=== PATIENT | female | born 1990 ===

== ENCOUNTER 2018-06-30 15:23 | Observation (INO) | payer MEDICAID ==
--- NOTE | 2018-06-30 16:12 | ED PDOC ---
HPI: Chest Pain Time Seen by Provider: 06/30/18 15:35 Chief Complaint (Nursing): Chest Pain Chief Complaint (Provider): Chest Pain History Per: Patient History/Exam Limitations: no limitations Onset/Duration Of Symptoms: Days (x5) Current Symptoms Are (Timing): Still Present Additional Complaint(s): 28 year old female with a past medical history of gastric sleeve surgery who is presenting to the ED for evaluation of left sided chest pain radiating to the back associated with shortness of breath onset this morning. Patient is 5 days s/p gastric sleeve placement and denies any leg pain or swelling. She also denies any fevers, cough, or chills. Patient offers no other medical complaints at this time. PMD: none provided Past Medical History Reviewed: Historical Data, Nursing Documentation, Vital Signs Vital Signs: Last Vital Signs Temp 97.5 F L 06/30/18 15:28 Pulse 101 H 06/30/18 15:48 Resp 18 06/30/18 15:28 BP 122/85 06/30/18 15:28 Pulse Ox 100 06/30/18 15:28 - Medical History PMH: No Chronic Diseases - Surgical History Other surgeries: Gastric Bypass surgery - Family History Family History: States: Unknown Family Hx - Social History Current smoker - smoking cessation education provided: No Alcohol: Social Drugs: Denies - Home Medications Home Medications: Ambulatory Orders Medication Instructions Recorded Cyclobenzaprine [Cyclobenzaprine 10 mg PO Q8 PRN #30 tab 12/23/15 HCl] Methylprednisolone [Medrol Dose 4 mg PO DAILY #21 mg 12/23/15 Pack (21 tabs)] Naproxen [Naprosyn] 500 mg PO BID PRN #30 tab 12/23/15 - Allergies Allergies/Adverse Reactions: Allergies Allergy/AdvReac Type Severity Reaction Status Date / Time No Known Allergies Allergy Verified 12/23/15 19:14 Review of Systems ROS Statement: Except As Marked, All Systems Reviewed And Found Negative Constitutional: Negative for: Fever, Chills Cardiovascular: Positive for: Chest Pain Respiratory: Positive for: Shortness of Breath. Negative for: Cough Musculoskeletal: Positive for: Back Pain. Negative for: Leg Pain (or swelling) Physical Exam - Reviewed Nursing Documentation Reviewed: Yes Vital Signs Reviewed: Yes - Physical Exam Appears: Positive for: Non-toxic, No Acute Distress Head Exam: Positive for: ATRAUMATIC, NORMAL INSPECTION, NORMOCEPHALIC Skin: Positive for: Normal Color, Warm, DRY Eye Exam: Positive for: EOMI, Normal appearance, PERRL Neck: Positive for: Normal, Painless ROM Cardiovascular/Chest: Positive for: Tachycardia. Negative for: Murmur Respiratory: Positive for: Normal Breath Sounds. Negative for: Respiratory Distress Gastrointestinal/Abdominal: Positive for: Normal Exam, Soft. Negative for: Tenderness Back: Positive for: Normal Inspection. Negative for: L CVA Tenderness, R CVA Tenderness, Vertebral Tenderness Extremity: Positive for: Normal ROM. Negative for: Deformity, Swelling Neurological/Psych: Positive for: Awake, Alert, Normal Tone, Oriented. Negative for: Motor/Sensory Deficits - Laboratory Results Result Diagrams: 06/30/18 16:26 06/30/18 16:20 - ECG ECG Rhythm: Positive for: Normal QRS, Normal ST Segment, Sinus Tachycardia Rate: 103 O2 Sat by Pulse Oximetry: 100 (RA) Pulse Ox Interpretation: Normal Medical Decision Making Medical Decision Making: Time: 16:02 Impression: chest pain Plan: --Will obtain CT chest as patient is at risk for PE given recent surgery Orders: --CT Angio Chest --EKG --CMP --Troponin --ED Urine --ED Urine Dipstick --D Dimer -- Chest X-Ray Scribe Attestation: Documented by Shamika Mejia, acting as a scribe for Kelechi Ely MD. Provider Scribe Attestation: All medical record entries made by the Scribe were at my direction and personally dictated by me. I have reviewed the chart and agree that the record accurately reflects my personal performance of the history, physical exam, medical decision making, and the department course for this patient. I have also personally directed, reviewed, and agree with the discharge instructions and disposition. Disposition - Clinical Impression Clinical Impression: Chest pain - Patient ED Disposition Is Patient to be Admitted: Yes - Disposition Disposition Time: 18:44 Condition: FAIR Forms: [facility] [facility] (Kyrgyz) - Pt Status Changed To: Hospital Disposition Of: Observation - POA Present On Arrival: None
[2018-06-30 16:46] LABS: ALB/GLOB RATIO 1.1 (1.0-2.1); ALBUMIN 4.9 g/dL (3.5-5.0); ALT/SGPT 36 U/L (9-52); AST/SGOT 37 U/L (14-36); BLOOD UREA NITROGEN 14 mg/dl (7-17); CALCIUM 9.6 mg/dL (8.4-10.2); GFR NON-AFRICAN AMERICAN > 60
[2018-06-30 16:51] LABS: BASO % 0.6 % (0.0-2.0); EOS # 0.2 K/uL (0.0-0.7); EOS % 2.3 % (0.0-4.0); HEMOGLOBIN 12.3 g/dL (12.0-16.0); LYMPH # 1.8 K/uL (1.0-4.3); LYMPH % 24.9 % (20.0-40.0); MEAN CELL VOLUME 76.3 fl (81.0-99.0); MEAN CORPUSCULAR HEMOGLOBIN 23.8 pg (27.0-31.0); MEAN CORPUSCULAR HGB CONC 31.3 g/dL (33.0-37.0); MEAN PLATELET VOLUME 9.7 fl (7.2-11.7); MONO # 0.5 K/uL (0.0-0.8); MONO % 6.1 % (0.0-10.0); NEUT # 4.9 K/uL (1.8-7.0); NEUT % 66.1 % (50.0-75.0); NRBC % 0.1 % (0.0-0.0); RBC 5.15 Mil/uL (3.80-5.20); RED CELL DISTRIBUTION WIDTH 17.3 % (11.5-14.5); WHITE BLOOD COUNT 7.4 K/uL (4.8-10.8)
[2018-06-30] MEDS ORDERED: Iodixanol 320 MG/ML 100 ML BOTTLE IV ONE ×2 (16:52→21:56)
[2018-06-30] MEDS ORDERED: Sodium Chloride 0.9% 50 ML IV ONE ×2 (16:55→21:56)
--- NOTE | 2018-06-30 17:43 | RAD ---
Date of service: 06/30/2018 HISTORY: Chest pain COMPARISON: No prior. TECHNIQUE: Chest PA and lateral views FINDINGS: LUNGS: No active pulmonary disease. PLEURA: No significant pleural effusion identified. No pneumothorax apparent. CARDIOVASCULAR: No aortic atherosclerotic calcification present. Normal cardiac size. No pulmonary vascular congestion. OSSEOUS STRUCTURES: No significant abnormalities. VISUALIZED UPPER ABDOMEN: Normal. OTHER FINDINGS: None. IMPRESSION: No active disease.
[2018-06-30 18:01] LABS: BARBITURATES, UR NEGATIVE (NEGATIVE); BENZODIAZEPINES, UR NEGATIVE (NEGATIVE); OPIATES, UR NEGATIVE (NEGATIVE); PHENCYCLIDINE, UR NEGATIVE (NEGATIVE)
--- NOTE | 2018-06-30 18:20 | CT ---
Date of service: 06/30/2018 PROCEDURE: CT Chest with contrast (Pulmonary Angiogram) HISTORY: Chest pain s/p gastric sleeve 5 days ago COMPARISON: None available. TECHNIQUE: Axial computed tomography images were obtained of the chest in the pulmonary arterial phase of enhancement. Coronal and sagittal reformatted images were created and reviewed. Intravenous contrast dose: 70 mL of Visipaque 320 Radiation dose: Total exam DLP = 300.99 mGy-cm. This CT exam was performed using one or more of the following dose reduction techniques: Automated exposure control, adjustment of the mA and/or kV according to patient size, and/or use of iterative reconstruction technique. FINDINGS: PULMONARY ARTERIES: Unremarkable. No pulmonary embolism. AORTA: No acute findings. No thoracic aortic aneurysm. No aortic atherosclerotic calcification or mural plaque present. LUNGS: In the left posterolateral lower lobe there is discoid atelectasis and/or scarring. No suspicious mass noted. PLEURAL SPACES: Possible trace left hemidiaphragmatic calcified pleural plaque.(Sagittal series 602, image 97 axis series 3, image 76 conceivably a tiny granuloma in the most superior portion of the spleen could simulate this appearance. No effusion or pneumothorax. HEART: . No cardiomegaly. No significant pericardial effusion. LYMPH NODES: No lymphadenopathy. BONES, CHEST WALL: No fracture or destructive lesion OTHER FINDINGS: There is a nodular opacity in the left lateral breast series 3, image 26 whose margins are somewhat irregular-on only 1 image. Consider correlation with left breast ultrasound and mammography. Findings are indeterminate. Its clinical significance, if any is unclear. Gastric surgical changes correlate clinically. Thickening of the adrenal limbs bilaterally. Probable concomitant 1 cm right adrenal benign adenoma. 1.9 cm left adrenal hypodense nodule this has negative Hounsfield units and a incidental benign adenoma here is also favored. Findings are noted on axis series 4, image 171 Anterior posterior elongated spleen possible tiny posterior calcified granuloma (versus contiguous left hemidiaphragmatic sub cm Calcified pleural plaque IMPRESSION: unremarkable CT pulmonary angiogram. No pulmonary embolus. Left lower lobe subsegmental discoid atelectasis with or without scarring. Bilateral benign-appearing adrenal masses probably bilateral adrenal adenomas. Indeterminate appearance to a nodular opacity in the lateral left breast could be normal for this patient. Appearance is indeterminate. Breast ultrasound recommended. Along with left breast exam Diagnostic mammography if needed. Other findings as above.
[2018-06-30] MEDS ORDERED: Sodium Chloride 0.9% 1,000 ML IV STA ×2 (18:29)
[2018-06-30 19:00] LABS: ABG ALLEN TEST YES; ARTERIAL BLOOD GAS O2 SAT 100.9 % (95-98); ARTERIAL BLOOD GAS PCO2 24 mm/Hg (35-45); ARTERIAL BLOOD GAS PO2 114 mm/Hg (80-100); ARTERIAL BLOOD GAS TCO2 12.5 mmol/L (22-28)
[2018-06-30] MEDS ORDERED: Iohexol 240 (50 ml) PO ONE (19:19)
--- NOTE | 2018-06-30 19:30 | CP.PCM.HP ---
<Arti Junior - Last Filed: 06/30/18 21:17> History of Present Illness - History of Present Illness History of Present Illness: This is 28 y/o F with PMH of s/p gastric sleeve surgery, POD#5 admitted to [facility] for evaluation and treatment of chest pain and r/o PE. Patient reports he was at her usual state of her health until this afternoon, she started feeling sharp, intermittent pleuritic chest pain, 8/10 in severity, radiating to her back and left arm, changing severity with respiration making difficult to breath normally. Denies any associated dizziness, blurred vision, palpitations, heart racing or LEs pain. Patient report she has been physically very active even after her surgery 5 days ago. Denies fever, n/v, recent travel or sick contact. PMH/PSH: s/p gastric sleeve surgery, POD#5 Allg: NKDA Meds: None SH: Denies alcohol, smoking or illicit drug use FH: + heart disease, Stroke and breast cancer ROS: As per HPI ER Course: VS: Afebrile, HR 101, RR 18, 122/85, Spo2 100 CBC; WNL D.dimer: elevated CMP: significant for Co2 11, Anion gap 26 ABG: PH 7.3, reviewed EKG: Sinus tachhy CXR: no active disease CT angio: no PE Doppler Pascale: Pending Present on Admission - Present on Admission Any Indicators Present on Admission: No History of DVT/PE: No History of Uncontrolled Diabetes: No Review of Systems - Constitutional Constitutional: absent: Fever - EENT Eyes: absent: Blurred Vision Ears: absent: Decreased Hearing, Ear Discharge, Dizziness Nose/Mouth/Throat: absent: Nasal Congestion - Breasts Breasts: absent: Skin Changes - Cardiovascular Cardiovascular: Chest Pain, Dyspnea on Exertion - Respiratory Respiratory: Dyspnea on Exertion. absent: Cough, Dyspnea, Hemoptysis, Wheezing - Gastrointestinal Gastrointestinal: absent: Abdominal Pain - Genitourinary Genitourinary: absent: Change in Urinary Stream - Musculoskeletal Musculoskeletal: Back Pain - Integumentary Integumentary: absent: Bleeding Lesions - Neurological Neurological: absent: Dizziness, Numbness, Focal Weakness, Loss of Vision - Psychiatric Psychiatric: absent: Anhedonia, Anxiety - Endocrine Endocrine: absent: Fatigue - Hematologic/Lymphatic Hematologic: absent: Easy Bleeding Past Patient History - Past Social History Alcohol: Social Drugs: Denies - PSYCHIATRIC Hx Substance Use: No - SURGICAL HISTORY Hx Surgeries: No Hx Gastric Bypass Surgery: Yes (5 days ago) - ANESTHESIA Hx Anesthesia: No Meds Allergies/Adverse Reactions: Allergies Allergy/AdvReac Type Severity Reaction Status Date / Time No Known Allergies Allergy Verified 12/23/15 19:14 Physical Exam - Constitutional Appears: No Acute Distress - Head Exam Head Exam: ATRAUMATIC, NORMAL INSPECTION, NORMOCEPHALIC - Eye Exam Eye Exam: EOMI, Normal appearance, PERRL Pupil Exam: NORMAL ACCOMODATION - ENT Exam ENT Exam: Mucous Membranes Moist - Neck Exam Neck exam: Positive for: Normal Inspection - Respiratory Exam Respiratory Exam: Clear to Auscultation Bilateral, NORMAL BREATHING PATTERN. absent: Decreased Breath Sounds, Rales, Rhonchi, Wheezes, Respiratory Distress, Stridor - Cardiovascular Exam Cardiovascular Exam: REGULAR RHYTHM, +S1, +S2 - GI/Abdominal Exam GI & Abdominal Exam: Normal Bowel Sounds, Soft. absent: Distended, Tenderness Additional comments: s/p gastric sleeve surgery, POD#5 , Laproscopic scars: no erythema, discharge or tenderness - Extremities Exam Extremities exam: Positive for: normal capillary refill, normal inspection, pedal pulses present. Negative for: pedal edema, tenderness - Back Exam Back exam: NORMAL INSPECTION. absent: CVA tenderness (L), CVA tenderness (R) - Neurological Exam Neurological exam: Alert, CN II-XII Intact, Oriented x3 - Psychiatric Exam Psychiatric exam: Normal Affect - Skin Skin Exam: Dry, Intact, Normal Color, Warm Results - Vital Signs Recent Vital Signs: Last Vital Signs Temp 97.5 F L 06/30/18 15:28 Pulse 94 H 06/30/18 19:01 Resp 16 06/30/18 19:01 BP 112/56 L 06/30/18 19:01 Pulse Ox 99 06/30/18 19:01 - Labs Result Diagrams: 06/30/18 16:26 06/30/18 16:20 Labs: Laboratory Results - last 24 hr 06/30/18 06/30/18 06/30/18 16:20 16:26 16:56 WBC 7.4 RBC 5.15 Hgb 12.3 Hct 39.3 MCV 76.3 L MCH 23.8 L MCHC 31.3 L RDW 17.3 H Plt Count 245 MPV 9.7 Neut % (Auto) 66.1 Lymph % (Auto) 24.9 [place] % (Auto) 6.1 Eos % (Auto) 2.3 Baso % (Auto) 0.6 Neut # (Auto) 4.9 Lymph # (Auto) 1.8 [place] # (Auto) 0.5 Eos # (Auto) 0.2 Baso # (Auto) 0.0 D-Dimer, Quantitative 927 H pCO2 pO2 HCO3 ABG pH ABG Total CO2 ABG O2 Saturation ABG Base Excess Karel Test ABG Potassium A-a O2 Difference Glucose Lactate FiO2 Sodium 138 Potassium 4.0 Chloride 105 Carbon Dioxide 11 L* Anion Gap 26 H BUN 14 Creatinine 0.6 L Est GFR ( Amer) > 60 Est GFR (Non-Af Amer) > 60 Random Glucose 73 Calcium 9.6 Total Bilirubin 0.8 AST 37 H ALT 36 Alkaline Phosphatase 100 Troponin I < 0.0120 Total Protein 9.4 H Albumin 4.9 Globulin 4.5 H Albumin/Globulin Ratio 1.1 Arterial Blood Potassium Urine Opiates Screen Urine Methadone Screen Ur Barbiturates Screen Ur Phencyclidine Scrn Ur Amphetamines Screen U Benzodiazepines Scrn U Oth Cocaine Metabols U Cannabinoids Screen Alcohol, Quantitative 06/30/18 06/30/18 06/30/18 17:40 17:41 18:53 WBC RBC Hgb Hct MCV MCH MCHC RDW Plt Count MPV Neut % (Auto) Lymph % (Auto) [place] % (Auto) Eos % (Auto) Baso % (Auto) Neut # (Auto) Lymph # (Auto) [place] # (Auto) Eos # (Auto) Baso # (Auto) D-Dimer, Quantitative pCO2 24 L pO2 114 H HCO3 15.0 L ABG pH 7.30 L ABG Total CO2 12.5 L ABG O2 Saturation 100.9 H ABG Base Excess -12.7 L Karel Test Yes ABG Potassium 3.8 A-a O2 Difference 6.0 Glucose 73 Lactate 0.6 L FiO2 21.0 Sodium 133.0 Potassium Chloride 106.0 Carbon Dioxide Anion Gap BUN Creatinine Est GFR ( Amer) Est GFR (Non-Af Amer) Random Glucose Calcium Total Bilirubin AST ALT Alkaline Phosphatase Troponin I Total Protein Albumin Globulin Albumin/Globulin Ratio Arterial Blood Potassium 3.8 Urine Opiates Screen Negative Urine Methadone Screen Negative Ur Barbiturates Screen Negative Ur Phencyclidine Scrn Negative Ur Amphetamines Screen Negative U Benzodiazepines Scrn Negative U Oth Cocaine Metabols Negative U Cannabinoids Screen Negative Alcohol, Quantitative < 10 Assessment & Plan - Assessment and Plan (Free Text) Assessment: A/P: 28 y/o F with PMH of s/p gastric sleeve surgery, POD#5 admitted to [facility] for evaluation and treatment of chest pain and r/o PE. Chest pain/Dyspnea/Tachycardia/Acidosis, r/o DVT/PE - Elevated D.Dimers - CT angio: negative for PE - F/u B/l LEs doppler - F/u CT abdo/Pelvis - C/w fluids - F/u Troponin x2 Q6H - F/u morning labs DVT PPX - SCD/Ambulatory, s/p surgery, consider Lovenox from tomorrow Case discussed and patient seen with Dr. Garcia <Jamilah Garcia - Last Filed: 07/01/18 15:05> Results - Vital Signs Recent Vital Signs: Last Vital Signs Temp 98.0 F 07/01/18 13:00 Pulse 83 07/01/18 13:00 Resp 18 07/01/18 13:00 BP 100/66 07/01/18 13:00 Pulse Ox 98 07/01/18 13:00 - Labs Result Diagrams: 07/01/18 05:20 07/01/18 05:20 Labs: Laboratory Results - last 24 hr 06/30/18 06/30/18 06/30/18 16:20 16:26 16:56 WBC 7.4 RBC 5.15 Hgb 12.3 Hct 39.3 MCV 76.3 L MCH 23.8 L MCHC 31.3 L RDW 17.3 H Plt Count 245 MPV 9.7 Neut % (Auto) 66.1 Lymph % (Auto) 24.9 [place] % (Auto) 6.1 Eos % (Auto) 2.3 Baso % (Auto) 0.6 Neut # (Auto) 4.9 Lymph # (Auto) 1.8 [place] # (Auto) 0.5 Eos # (Auto) 0.2 Baso # (Auto) 0.0 D-Dimer, Quantitative 927 H pCO2 pO2 HCO3 ABG pH ABG Total CO2 ABG O2 Saturation ABG O2 Content ABG Base Excess ABG Hemoglobin ABG Carboxyhemoglobin POC ABG HHb (Measured) ABG Methemoglobin ABG O2 Capacity Karel Test ABG Potassium A-a O2 Difference Hgb O2 Saturation Glucose Lactate FiO2 Sodium 138 Potassium 4.0 Chloride 105 Carbon Dioxide 11 L* Anion Gap 26 H BUN 14 Creatinine 0.6 L Est GFR ( Amer) > 60 Est GFR (Non-Af Amer) > 60 Random Glucose 73 Calcium 9.6 Phosphorus Magnesium Total Bilirubin 0.8 AST 37 H ALT 36 Alkaline Phosphatase 100 Troponin I < 0.0120 Total Protein 9.4 H Albumin 4.9 Globulin 4.5 H Albumin/Globulin Ratio 1.1 Arterial Blood Potassium Urine Opiates Screen Urine Methadone Screen Ur Barbiturates Screen Ur Phencyclidine Scrn Ur Amphetamines Screen U Benzodiazepines Scrn U Oth Cocaine Metabols U Cannabinoids Screen Alcohol, Quantitative 06/30/18 06/30/18 06/30/18 17:40 17:41 18:53 WBC RBC Hgb Hct MCV MCH MCHC RDW Plt Count MPV Neut % (Auto) Lymph % (Auto) [place] % (Auto) Eos % (Auto) Baso % (Auto) Neut # (Auto) Lymph # (Auto) [place] # (Auto) Eos # (Auto) Baso # (Auto) D-Dimer, Quantitative pCO2 24 L pO2 114 H HCO3 15.0 L ABG pH 7.30 L ABG Total CO2 12.5 L ABG O2 Saturation 100.9 H ABG O2 Content ABG Base Excess -12.7 L ABG Hemoglobin ABG Carboxyhemoglobin POC ABG HHb (Measured) ABG Methemoglobin ABG O2 Capacity Karel Test Yes ABG Potassium 3.8 A-a O2 Difference 6.0 Hgb O2 Saturation Glucose 73 Lactate 0.6 L FiO2 21.0 Sodium 133.0 Potassium Chloride 106.0 Carbon Dioxide Anion Gap BUN Creatinine Est GFR ( Amer) Est GFR (Non-Af Amer) Random Glucose Calcium Phosphorus Magnesium Total Bilirubin AST ALT Alkaline Phosphatase Troponin I Total Protein Albumin Globulin Albumin/Globulin Ratio Arterial Blood Potassium 3.8 Urine Opiates Screen Negative Urine Methadone Screen Negative Ur Barbiturates Screen Negative Ur Phencyclidine Scrn Negative Ur Amphetamines Screen Negative U Benzodiazepines Scrn Negative U Oth Cocaine Metabols Negative U Cannabinoids Screen Negative Alcohol, Quantitative < 10 06/30/18 06/30/18 07/01/18 19:40 23:00 05:18 WBC RBC Hgb Hct MCV MCH MCHC RDW Plt Count MPV Neut % (Auto) Lymph % (Auto) [place] % (Auto) Eos % (Auto) Baso % (Auto) Neut # (Auto) Lymph # (Auto) [place] # (Auto) Eos # (Auto) Baso # (Auto) D-Dimer, Quantitative pCO2 31 L pO2 108 H HCO3 16.4 L ABG pH 7.28 L ABG Total CO2 15.6 L ABG O2 Saturation 99.6 H ABG O2 Content 14.5 L ABG Base Excess -11.0 L ABG Hemoglobin 10.5 L ABG Carboxyhemoglobin 1.5 POC ABG HHb (Measured) 0.4 ABG Methemoglobin 1.0 ABG O2 Capacity 14.6 L Karel Test Yes ABG Potassium A-a O2 Difference 3.0 Hgb O2 Saturation 97.2 Glucose Lactate FiO2 21.0 Sodium Potassium Chloride Carbon Dioxide Anion Gap BUN Creatinine Est GFR ( Amer) Est GFR (Non-Af Amer) Random Glucose Calcium Phosphorus 3.7 Magnesium 2.1 Total Bilirubin AST ALT Alkaline Phosphatase Troponin I < 0.0120 Total Protein Albumin Globulin Albumin/Globulin Ratio Arterial Blood Potassium Urine Opiates Screen Urine Methadone Screen Ur Barbiturates Screen Ur Phencyclidine Scrn Ur Amphetamines Screen U Benzodiazepines Scrn U Oth Cocaine Metabols U Cannabinoids Screen Alcohol, Quantitative 07/01/18 07/01/18 05:20 05:20 WBC 5.3 RBC 4.44 Hgb 10.7 L Hct 34.0 MCV 76.7 L MCH 24.1 L MCHC 31.4 L RDW 17.2 H Plt Count 192 MPV 9.5 Neut % (Auto) 58.8 Lymph % (Auto) 30.2 [place] % (Auto) 8.7 Eos % (Auto) 2.1 Baso % (Auto) 0.2 Neut # (Auto) 3.1 Lymph # (Auto) 1.6 [place] # (Auto) 0.5 Eos # (Auto) 0.1 Baso # (Auto) 0.0 D-Dimer, Quantitative pCO2 pO2 HCO3 ABG pH ABG Total CO2 ABG O2 Saturation ABG O2 Content ABG Base Excess ABG Hemoglobin ABG Carboxyhemoglobin POC ABG HHb (Measured) ABG Methemoglobin ABG O2 Capacity Karel Test ABG Potassium A-a O2 Difference Hgb O2 Saturation Glucose Lactate FiO2 Sodium 138 Potassium 3.8 Chloride 108 H Carbon Dioxide 15 L Anion Gap 19 BUN 11 Creatinine 0.5 L Est GFR ( Amer) > 60 Est GFR (Non-Af Amer) > 60 Random Glucose 64 L Calcium 8.7 Phosphorus Magnesium Total Bilirubin 0.6 AST 18 ALT 29 Alkaline Phosphatase 68 Troponin I < 0.0120 Total Protein 7.4 Albumin 3.7 Globulin 3.7 Albumin/Globulin Ratio 1.0 Arterial Blood Potassium Urine Opiates Screen Urine Methadone Screen Ur Barbiturates Screen Ur Phencyclidine Scrn Ur Amphetamines Screen U Benzodiazepines Scrn U Oth Cocaine Metabols U Cannabinoids Screen Alcohol, Quantitative Attending/Attestation - Attestation I have personally seen and examined this patient.: Yes I have fully participated in the care of the patient.: Yes I have reviewed all pertinent clinical information: Yes Notes (Text): 07/01/18 15:05 Agree with findings and plan as above.
[2018-06-30] MEDS ORDERED: Iohexol 240 (50 ml) ONE (20:06)
[2018-07-01 06:06] LABS: ABG ALLEN TEST YES; ARTERIAL BLOOD GAS HCO3 16.4 mmol/L (21-28); ARTERIAL BLOOD GAS HEMOGLOBIN 10.5 g/dL (11.7-17.4); ARTERIAL BLOOD GAS O2 CAPACITY 14.6 mL/dL (16-24); ARTERIAL BLOOD GAS O2 CONTENT 14.5 ML/dL (15-23); ARTERIAL BLOOD GAS O2 SAT 99.6 % (95-98); ARTERIAL BLOOD GAS PCO2 31 mm/Hg (35-45); ARTERIAL BLOOD GAS PH 7.28 (7.35-7.45); ARTERIAL BLOOD GAS PO2 108 mm/Hg (80-100); ARTERIAL BLOOD GAS TCO2 15.6 mmol/L (22-28)
[2018-07-01 06:58] LABS: BASO % 0.2 % (0.0-2.0); EOS # 0.1 K/uL (0.0-0.7); EOS % 2.1 % (0.0-4.0); HEMOGLOBIN 10.7 g/dL (12.0-16.0); LYMPH # 1.6 K/uL (1.0-4.3); LYMPH % 30.2 % (20.0-40.0); MEAN CELL VOLUME 76.7 fl (81.0-99.0); MEAN CORPUSCULAR HEMOGLOBIN 24.1 pg (27.0-31.0); MEAN CORPUSCULAR HGB CONC 31.4 g/dL (33.0-37.0); MEAN PLATELET VOLUME 9.5 fl (7.2-11.7); MONO # 0.5 K/uL (0.0-0.8); MONO % 8.7 % (0.0-10.0); NEUT # 3.1 K/uL (1.8-7.0); NEUT % 58.8 % (50.0-75.0); RBC 4.44 Mil/uL (3.80-5.20); RED CELL DISTRIBUTION WIDTH 17.2 % (11.5-14.5); WHITE BLOOD COUNT 5.3 K/uL (4.8-10.8)
[2018-07-01 07:14] LABS: ALBUMIN 3.7 g/dL (3.5-5.0); ALT/SGPT 29 U/L (9-52); AST/SGOT 18 U/L (14-36); BLOOD UREA NITROGEN 11 mg/dl (7-17); CALCIUM 8.7 mg/dL (8.4-10.2); GFR NON-AFRICAN AMERICAN > 60
--- NOTE | 2018-07-01 08:15 | CARD ---
APPROVED REPORT Date of service: 06/30/2018 EKG Measurement Heart [id number] <Conclusion> Sinus tachycardia Otherwise normal ECG
[2018-07-01] MEDS: Pantoprazole 40 mg EC Tab PO SCH ×2 (09:07→09:10)
--- NOTE | 2018-07-01 09:22 | US ---
Date of service: 06/30/2018 PROCEDURE: Bilateral lower extremity venous duplex Doppler. HISTORY: Elevated d dimer post op COMPARISON: None available. TECHNIQUE: Bilateral common femoral, superficial femoral, popliteal and posterior tibial veins were evaluated. Flow was assessed with color Doppler, compressibility, assessment of phasic flow and augmentation response. FINDINGS: COMMON FEMORAL VEIN: Right CFV: Unremarkable. Left CFV: Unremarkable. SUPERFICIAL FEMORAL VEIN: Right SFV: Unremarkable. Left SFV: Unremarkable. POPLITEAL VEIN: Right Popliteal: Unremarkable. Left Popliteal: Unremarkable. POSTERIOR TIBIAL VEIN: Right PTV: Unremarkable. Left PTV: Unremarkable. OTHER FINDINGS: None. IMPRESSION: No evidence of deep venous thrombosis in the right or left lower extremity. The preliminary findings for this examination were reported by [facility] at 7:56 p.m. on 06/30/2018. There is concurrence of this report with the preliminary findings.
--- NOTE | 2018-07-01 10:32 | CT ---
Date of service: 06/30/2018 PROCEDURE: CT Abdomen and Pelvis with contrast HISTORY: Abdominal pain COMPARISON: None available. TECHNIQUE: CT scan of the abdomen and pelvis was performed after administration of intravenous contrast. Oral contrast was not administered. Coronal and sagittal reformatted images were obtained. Contrast dose: 90 mL Omnipaque 320 Radiation dose: Total exam DLP = 563.37 mGy-cm. This CT exam was performed using one or more of the following dose reduction techniques: Automated exposure control, adjustment of the mA and/or kV according to patient size, and/or use of iterative reconstruction technique. FINDINGS: LOWER THORAX: The visualized lungs right lung is clear. There is a small anterior basal pneumothorax. There is linear atelectasis in the lingula and left lung. LIVER: Normal in size with homogeneous enhancement. Fatty liver. No gross lesion or ductal dilatation. GALLBLADDER AND BILE DUCTS: Well distended. No calcified gallstones, wall thickening or pericholecystic fluid. PANCREAS: Normal in size with homogeneous enhancement. No gross lesion or ductal dilatation. SPLEEN: Normal in size. There is a 1.5 cm hypoenhancing area in the medial aspect of the upper pole of the spleen. ADRENALS: There is a 1.1 x 1.1 cm indeterminate nodule in the right adrenal gland.. There is a 2.0 x 1.6 cm indeterminate nodule in the medial limb of the left adrenal gland. KIDNEYS AND URETERS: Normal in size with homogeneous enhancement. No hydronephrosis. No solid mass. VASCULATURE: No aortic aneurysm. There are no aortic atherosclerotic calcifications or mural plaque present. BOWEL: Evaluation of the bowel is limited in the absence of oral contrast. There are postsurgical changes in the stomach. The small bowel loops are normal in caliber. There is moderate amount of stool in the ascending colon. The colon is grossly normal in appearance. No bowel wall thickening or obstruction. APPENDIX: Normal appendix. PERITONEUM: No free fluid. No free air. LYMPH NODES: No enlarged lymph nodes. BLADDER: Well distended and normal in appearance. REPRODUCTIVE: The uterus is anteverted and normal in size. An IUD remains in customary position. BONES: No acute fracture. Within normal limits for the patient's age. OTHER FINDINGS: There is a small fat containing umbilical hernia. IMPRESSION: 1. Small left anterior basal pneumothorax. 2. 1.5 cm hypoenhancing area in the upper pole of the spleen medially which may represent splenic infarction however correlation with left upper quadrant ultrasound is advised. 3. Bilateral indeterminate adrenal nodules, larger on the left. Dedicated CT scan/MRI of the abdomen without and with intravenous contrast with adrenal protocol is recommended for further characterization. A preliminary report was provided by [email or web address]. The final report is tagged to the PA review folder.
[2018-07-01] MEDS ORDERED: Nystatin 100,000 Units/ml Oral Susp 5 ml UD PO SCH (13:00)
--- NOTE | 2018-07-01 13:27 | CP.PCM.PN ---
<Justyna Gibbons - Last Filed: 07/01/18 13:40> Subjective - Date & Time of Evaluation Date of Evaluation: 07/01/18 Time of Evaluation: 13:23 - Subjective Subjective: Pt seen bedside. Admits to feeling better but does not want to get too many more lab tests. Denies nausea, vomiting, headache, chest pain, dizziness and dysuria. Objective - Vital Signs/Intake and Output Vital Signs (last 24 hours): Temp Pulse Resp BP Pulse Ox 98.0 F 83 18 100/66 98 07/01/18 13:00 07/01/18 13:00 07/01/18 13:00 07/01/18 13:00 07/01/18 13:00 - Medications Medications: Current Medications Acetaminophen (Tylenol 325mg Tab) 650 mg PO Q6 PRN PRN Reason: Headache Dextrose/Sodium Chloride (Dextrose 5%-0.9% Ns 500 Ml) 1,000 mls @ 150 mls/hr IV .Q6H40M [facility] Stop: 07/02/18 08:12 Last Admin: 07/01/18 09:06 Dose: 150 mls/hr Ibuprofen (Motrin Tab) 400 mg PO Q6 PRN PRN Reason: Fever >100.4 F Nystatin (Nystatin Oral Susp) 5 ml PO QID [facility] Last Admin: 07/01/18 12:03 Dose: 5 ml Ondansetron HCl (Zofran Inj) 4 mg IVP Q6 PRN PRN Reason: Nausea/Vomiting Pantoprazole Sodium (Protonix Inj) 40 mg IVP DAILY [facility] Last Admin: 07/01/18 10:27 Dose: 40 mg - Labs Labs: 07/01/18 05:20 07/01/18 05:20 - Constitutional Appears: Non-toxic, No Acute Distress - Eye Exam Eye Exam: Normal appearance - ENT Exam ENT Exam: Mucous Membranes Moist - Neck Exam Neck Exam: Normal Inspection - Respiratory Exam Respiratory Exam: NORMAL BREATHING PATTERN. absent: Respiratory Distress - Cardiovascular Exam Cardiovascular Exam: REGULAR RHYTHM - GI/Abdominal Exam GI & Abdominal Exam: Soft Additional comments: s/p gastric sleeve surgery, POD#6 , Laproscopic scars: no erythema, discharge or tenderness Assessment and Plan - Assessment and Plan (Free Text) Assessment: 28 y/o F with PMH of s/p gastric sleeve surgery, POD#5 admitted to [facility] for evaluation and treatment of chest pain and r/o PE. Plan: Chest pain/Dyspnea/Tachycardia - Elevated D.Dimers 927 - CT angio: negative for PE - B/L LEs doppler: no DVT - CT abdo/Pelvis: wnl - Troponin neg - Liquid diet, s/p gastric sleeve surgery Metabolic Acidosis - ABG: metabolic acidosis, follow-up repeat s/p IVF fluids - F/u urine electrolytes - IVF DVT PPX - SCD/Ambulatory <Jamilah Garcia - Last Filed: 07/01/18 15:02> Objective - Vital Signs/Intake and Output Vital Signs (last 24 hours): Temp Pulse Resp BP Pulse Ox 98.0 F 83 18 100/66 98 07/01/18 13:00 07/01/18 13:00 07/01/18 13:00 07/01/18 13:00 07/01/18 13:00 - Medications Medications: Current Medications Acetaminophen (Tylenol 325mg Tab) 650 mg PO Q6 PRN PRN Reason: Headache Dextrose/Sodium Chloride (Dextrose 5%-0.9% Ns 500 Ml) 1,000 mls @ 150 mls/hr IV .Q6H40M [facility] Stop: 07/02/18 08:12 Last Admin: 07/01/18 09:06 Dose: 150 mls/hr Ibuprofen (Motrin Tab) 400 mg PO Q6 PRN PRN Reason: Fever >100.4 F Ondansetron HCl (Zofran Inj) 4 mg IVP Q6 PRN PRN Reason: Nausea/Vomiting Pantoprazole Sodium (Protonix Inj) 40 mg IVP DAILY [facility] Last Admin: 07/01/18 10:27 Dose: 40 mg - Labs Labs: 07/01/18 05:20 07/01/18 05:20 Attending/Attestation - Attestation I have personally seen and examined this patient.: Yes I have fully participated in the care of the patient.: Yes I have reviewed all pertinent clinical information, including history, physical exam and plan: Yes Notes (Text): 07/01/18 15:02 Agree with findings and plan as above.
[2018-07-01 16:09] LABS: BLOOD UREA NITROGEN 8 mg/dl (7-17); CALCIUM 8.1 mg/dL (8.4-10.2); GFR NON-AFRICAN AMERICAN > 60
[2018-07-01] MEDS ORDERED: Potassium Chloride 20 mEq ER Tab PO ONE (16:19)
[2018-07-01 16:21] VITALS: BP 103/69; PULSE 73; RESP 16; TEMP 97.8; O2SAT 95
--- NOTE | 2018-07-02 02:06 | CP.PCM.DIS ---
<RodriguezArti - Last Filed: 07/02/18 02:13> Provider - Provider Date of Admission: 06/30/18 18:43 Attending physician: Jamilah Garcia DO Primary care physician: Dr. Thomas Consults: None Time Spent in preparation of Discharge (in minutes): 40 Diagnosis - Discharge Diagnosis (1) Atypical chest pain Status: Acute Comment: Resolved (2) Metabolic acidosis Status: Acute Comment: Improved (3) Dehydration Status: Acute Comment: Improved, S/p IVF (4) Status post gastric surgery Status: Acute Comment: POD 6 Hospital Course - Lab Results Lab Results: Most Recent Lab Values WBC 5.3 K/uL (4.8-10.8) 07/01/18 05:20 RBC 4.44 Mil/uL (3.80-5.20) 07/01/18 05:20 Hgb 10.7 g/dL (12.0-16.0) L 07/01/18 05:20 Hct 34.0 % (34.0-47.0) 07/01/18 05:20 MCV 76.7 fl (81.0-99.0) L 07/01/18 05:20 MCH 24.1 pg (27.0-31.0) L 07/01/18 05:20 MCHC 31.4 g/dL (33.0-37.0) L 07/01/18 05:20 RDW 17.2 % (11.5-14.5) H 07/01/18 05:20 Plt Count 192 K/uL (130-400) 07/01/18 05:20 MPV 9.5 fl (7.2-11.7) 07/01/18 05:20 Neut % (Auto) 58.8 % (50.0-75.0) 07/01/18 05:20 Lymph % (Auto) 30.2 % (20.0-40.0) 07/01/18 05:20 [place] % (Auto) 8.7 % (0.0-10.0) 07/01/18 05:20 Eos % (Auto) 2.1 % (0.0-4.0) 07/01/18 05:20 Baso % (Auto) 0.2 % (0.0-2.0) 07/01/18 05:20 Neut # (Auto) 3.1 K/uL (1.8-7.0) 07/01/18 05:20 Lymph # (Auto) 1.6 K/uL (1.0-4.3) 07/01/18 05:20 [place] # (Auto) 0.5 K/uL (0.0-0.8) 07/01/18 05:20 Eos # (Auto) 0.1 K/uL (0.0-0.7) 07/01/18 05:20 Baso # (Auto) 0.0 K/uL (0.0-0.2) 07/01/18 05:20 D-Dimer, Quantitative 927 ng/mlDDU (0-230) H 06/30/18 16:56 pCO2 31 mm/Hg (35-45) L 07/01/18 05:18 pO2 108 mm/Hg (80-100) H 07/01/18 05:18 HCO3 16.4 mmol/L (21-28) L 07/01/18 05:18 ABG pH 7.28 (7.35-7.45) L 07/01/18 05:18 ABG Total CO2 15.6 mmol/L (22-28) L 07/01/18 05:18 ABG O2 Saturation 99.6 % (95-98) H 07/01/18 05:18 ABG O2 Content 14.5 ML/dL (15-23) L 07/01/18 05:18 ABG Base Excess -11.0 mmol/L (-2.0-3.0) L 07/01/18 05:18 ABG Hemoglobin 10.5 g/dL (11.7-17.4) L 07/01/18 05:18 ABG Carboxyhemoglobin 1.5 % (0.5-1.5) 07/01/18 05:18 POC ABG HHb (Measured) 0.4 % (0.0-5.0) 07/01/18 05:18 ABG Methemoglobin 1.0 % (0.0-3.0) 07/01/18 05:18 ABG O2 Capacity 14.6 mL/dL (16-24) L 07/01/18 05:18 Karel Test Yes 07/01/18 05:18 ABG Potassium 3.8 mmol/L (3.6-5.2) 06/30/18 18:53 A-a O2 Difference 3.0 mm/Hg 07/01/18 05:18 Hgb O2 Saturation 97.2 % (95.0-98.0) 07/01/18 05:18 Sodium 133.0 mmol/L (132-148) 06/30/18 18:53 Chloride 106.0 mmol/L (98-107) 06/30/18 18:53 Glucose 73 mg/dL (65-105) 06/30/18 18:53 Lactate 0.6 mmol/L (0.7-2.1) L 06/30/18 18:53 FiO2 21.0 % 07/01/18 05:18 Sodium 136 mmol/l (132-148) 07/01/18 14:55 Potassium 3.4 MMOL/L (3.6-5.0) L 07/01/18 14:55 Chloride 106 mmol/L (98-107) 07/01/18 14:55 Carbon Dioxide 20 mmol/L (22-30) L 07/01/18 14:55 Anion Gap 13 (10-20) 07/01/18 14:55 BUN 8 mg/dl (7-17) 07/01/18 14:55 Creatinine 0.4 mg/dl (0.7-1.2) L 07/01/18 14:55 Est GFR ( Amer) > 60 07/01/18 14:55 Est GFR (Non-Af Amer) > 60 07/01/18 14:55 Random Glucose 116 mg/dL (65-105) H 07/01/18 14:55 Calcium 8.1 mg/dL (8.4-10.2) L 07/01/18 14:55 Phosphorus 3.7 mg/dl (2.5-4.5) 06/30/18 19:40 Magnesium 2.1 MG/DL (1.6-2.3) 06/30/18 19:40 Total Bilirubin 0.6 mg/dl (0.2-1.3) 07/01/18 05:20 AST 18 U/L (14-36) 07/01/18 05:20 ALT 29 U/L (9-52) 07/01/18 05:20 Alkaline Phosphatase 68 U/L (38-126) 07/01/18 05:20 Troponin I < 0.0120 ng/mL (0.00-0.120) 07/01/18 05:20 Total Protein 7.4 G/DL (6.3-8.2) 07/01/18 05:20 Albumin 3.7 g/dL (3.5-5.0) 07/01/18 05:20 Globulin 3.7 gm/dL (2.2-3.9) 07/01/18 05:20 Albumin/Globulin Ratio 1.0 (1.0-2.1) 07/01/18 05:20 Arterial Blood Potassium 3.8 mmol/L (3.6-5.2) 06/30/18 18:53 Ur Random Sodium 67 meq/L 07/01/18 16:30 Ur Random Potassium 16.2 mmol/L 07/01/18 16:30 Urine Opiates Screen Negative (NEGATIVE) 06/30/18 17:40 Urine Methadone Screen Negative (NEGATIVE) 06/30/18 17:40 Ur Barbiturates Screen Negative (NEGATIVE) 06/30/18 17:40 Ur Phencyclidine Scrn Negative (NEGATIVE) 06/30/18 17:40 Ur Amphetamines Screen Negative (NEGATIVE) 06/30/18 17:40 U Benzodiazepines Scrn Negative (NEGATIVE) 06/30/18 17:40 U Oth Cocaine Metabols Negative (NEGATIVE) 06/30/18 17:40 U Cannabinoids Screen Negative (NEGATIVE) 06/30/18 17:40 Alcohol, Quantitative < 10 mg/dl (0-10) 06/30/18 17:41 - Hospital Course Hospital Course: 28 y/o F with PMH of s/p gastric sleeve surgery, POD#5 admitted to [facility] for evaluation and treatment of chest pain and r/o PE. Patient was found to have metabolic acidosis in labs, started on fluids. After admission patient was found to have elevated d.dimer with tachycardia on EKG but negative CXR, CT angio, B/L LEs doppler and CT abdo/pelvis. Patient remained stable during admission, repeat labs today indicative of improved metabolic acidosis. Patient agrees with d/c plan, patient instructed to increase PO intake and f/u with PMD and Surgery team for further evaluations. ED precautions discussed with patient. Case discussed with Dr. Garcia, agrees with plan - Dr. Valerie RODRIGUEZ, PGY-II Discharge Exam - Head Exam Head Exam: ATRAUMATIC, NORMAL INSPECTION, NORMOCEPHALIC - Eye Exam Eye Exam: EOMI, Normal appearance, PERRL Pupil Exam: NORMAL ACCOMODATION - ENT Exam ENT Exam: Mucous Membranes Moist - Neck Exam Neck exam: Normal Inspection - Respiratory Exam Respiratory Exam: Clear to PA & Lateral, NORMAL BREATHING PATTERN. absent: Decreased Breath Sounds, Wheezes, Respiratory Distress - Cardiovascular Exam Cardiovascular Exam: REGULAR RHYTHM, +S1, +S2. absent: Bradycardia, Tachycardia - GI/Abdominal Exam GI & Abdominal Exam: Normal Bowel Sounds, Soft. absent: Tenderness Additional comments: s/p gastric sleeve surgery, POD#6 , Laproscopic scars: no erythema, discharge or tenderness - Extremities Exam Extremities exam: normal inspection, pedal pulses present - Back Exam Back exam: NORMAL INSPECTION. absent: CVA tenderness (L), CVA tenderness (R) - Neurological Exam Neurological exam: Alert, CN II-XII Intact, Normal Gait, Oriented x3, Reflexes Normal - Psychiatric Exam Psychiatric exam: Normal Affect - Skin Skin Exam: Dry, Intact, Normal Color, Warm Discharge Plan - Follow Up Plan Condition: FAIR Disposition: HOME/ ROUTINE Instructions: Metabolic Acidosis, Chest Pain (DC), Back Pain (GEN) Additional Instructions: F/u with PMD in 2-3 days F/u with Surgery/GI, s/p gastric sleeve, POD6 Return to ED if any health changes Referrals: Rome Thomas [Family Provider] - <Jamilah Garcia - Last Filed: 07/08/18 09:20> Provider - Provider Date of Admission: 06/30/18 18:43 Attending physician: Jamilah Garcia DO Hospital Course - Lab Results Lab Results: Most Recent Lab Values WBC 5.3 K/uL (4.8-10.8) 07/01/18 05:20 RBC 4.44 Mil/uL (3.80-5.20) 07/01/18 05:20 Hgb 10.7 g/dL (12.0-16.0) L 07/01/18 05:20 Hct 34.0 % (34.0-47.0) 07/01/18 05:20 MCV 76.7 fl (81.0-99.0) L 07/01/18 05:20 MCH 24.1 pg (27.0-31.0) L 07/01/18 05:20 MCHC 31.4 g/dL (33.0-37.0) L 07/01/18 05:20 RDW 17.2 % (11.5-14.5) H 07/01/18 05:20 Plt Count 192 K/uL (130-400) 07/01/18 05:20 MPV 9.5 fl (7.2-11.7) 07/01/18 05:20 Neut % (Auto) 58.8 % (50.0-75.0) 07/01/18 05:20 Lymph % (Auto) 30.2 % (20.0-40.0) 07/01/18 05:20 [place] % (Auto) 8.7 % (0.0-10.0) 07/01/18 05:20 Eos % (Auto) 2.1 % (0.0-4.0) 07/01/18 05:20 Baso % (Auto) 0.2 % (0.0-2.0) 07/01/18 05:20 Neut # (Auto) 3.1 K/uL (1.8-7.0) 07/01/18 05:20 Lymph # (Auto) 1.6 K/uL (1.0-4.3) 07/01/18 05:20 [place] # (Auto) 0.5 K/uL (0.0-0.8) 07/01/18 05:20 Eos # (Auto) 0.1 K/uL (0.0-0.7) 07/01/18 05:20 Baso # (Auto) 0.0 K/uL (0.0-0.2) 07/01/18 05:20 D-Dimer, Quantitative 927 ng/mlDDU (0-230) H 06/30/18 16:56 pCO2 31 mm/Hg (35-45) L 07/01/18 05:18 pO2 108 mm/Hg (80-100) H 07/01/18 05:18 HCO3 16.4 mmol/L (21-28) L 07/01/18 05:18 ABG pH 7.28 (7.35-7.45) L 07/01/18 05:18 ABG Total CO2 15.6 mmol/L (22-28) L 07/01/18 05:18 ABG O2 Saturation 99.6 % (95-98) H 07/01/18 05:18 ABG O2 Content 14.5 ML/dL (15-23) L 07/01/18 05:18 ABG Base Excess -11.0 mmol/L (-2.0-3.0) L 07/01/18 05:18 ABG Hemoglobin 10.5 g/dL (11.7-17.4) L 07/01/18 05:18 ABG Carboxyhemoglobin 1.5 % (0.5-1.5) 07/01/18 05:18 POC ABG HHb (Measured) 0.4 % (0.0-5.0) 07/01/18 05:18 ABG Methemoglobin 1.0 % (0.0-3.0) 07/01/18 05:18 ABG O2 Capacity 14.6 mL/dL (16-24) L 07/01/18 05:18 [place]arel Test Yes 07/01/18 05:18 ABG Potassium 3.8 mmol/L (3.6-5.2) 06/30/18 18:53 A-a O2 Difference 3.0 mm/Hg 07/01/18 05:18 Hgb O2 Saturation 97.2 % (95.0-98.0) 07/01/18 05:18 Sodium 133.0 mmol/L (132-148) 06/30/18 18:53 Chloride 106.0 mmol/L (98-107) 06/30/18 18:53 Glucose 73 mg/dL (65-105) 06/30/18 18:53 Lactate 0.6 mmol/L (0.7-2.1) L 06/30/18 18:53 FiO2 21.0 % 07/01/18 05:18 Sodium 136 mmol/l (132-148) 07/01/18 14:55 Potassium 3.4 MMOL/L (3.6-5.0) L 07/01/18 14:55 Chloride 106 mmol/L (98-107) 07/01/18 14:55 Carbon Dioxide 20 mmol/L (22-30) L 07/01/18 14:55 Anion Gap 13 (10-20) 07/01/18 14:55 BUN 8 mg/dl (7-17) 07/01/18 14:55 Creatinine 0.4 mg/dl (0.7-1.2) L 07/01/18 14:55 Est GFR ( Amer) > 60 07/01/18 14:55 Est GFR (Non-Af Amer) > 60 07/01/18 14:55 Random Glucose 116 mg/dL (65-105) H 07/01/18 14:55 Calcium 8.1 mg/dL (8.4-10.2) L 07/01/18 14:55 Phosphorus 3.7 mg/dl (2.5-4.5) 06/30/18 19:40 Magnesium 2.1 MG/DL (1.6-2.3) 06/30/18 19:40 Total Bilirubin 0.6 mg/dl (0.2-1.3) 07/01/18 05:20 AST 18 U/L (14-36) 07/01/18 05:20 ALT 29 U/L (9-52) 07/01/18 05:20 Alkaline Phosphatase 68 U/L (38-126) 07/01/18 05:20 Troponin I < 0.0120 ng/mL (0.00-0.120) 07/01/18 05:20 Total Protein 7.4 G/DL (6.3-8.2) 07/01/18 05:20 Albumin 3.7 g/dL (3.5-5.0) 07/01/18 05:20 Globulin 3.7 gm/dL (2.2-3.9) 07/01/18 05:20 Albumin/Globulin Ratio 1.0 (1.0-2.1) 07/01/18 05:20 Arterial Blood Potassium 3.8 mmol/L (3.6-5.2) 06/30/18 18:53 Ur Random Sodium 67 meq/L 07/01/18 16:30 Ur Random Potassium 16.2 mmol/L 07/01/18 16:30 Urine Opiates Screen Negative (NEGATIVE) 06/30/18 17:40 Urine Methadone Screen Negative (NEGATIVE) 06/30/18 17:40 Ur Barbiturates Screen Negative (NEGATIVE) 06/30/18 17:40 Ur Phencyclidine Scrn Negative (NEGATIVE) 06/30/18 17:40 Ur Amphetamines Screen Negative (NEGATIVE) 06/30/18 17:40 U Benzodiazepines Scrn Negative (NEGATIVE) 06/30/18 17:40 U Oth Cocaine Metabols Negative (NEGATIVE) 06/30/18 17:40 U Cannabinoids Screen Negative (NEGATIVE) 06/30/18 17:40 Alcohol, Quantitative < 10 mg/dl (0-10) 06/30/18 17:41 Attending/Attestation - Attestation I have personally seen and examined this patient.: Yes I have fully participated in the care of the patient.: Yes I have reviewed all pertinent clinical information, including history, physical exam and plan: Yes Notes (Text): 07/08/18 09:19 Agree with findings and plan as above
== END 2018-07-01 18:45 | disposition home or self-care (01) ==
LOC: H.ER 15:23 → H.ERHOLD 18:43 → H.TEL 23:32
PROVIDERS: ADMIT Student in an Organized Health Care Education/Training Program; ATTEND Student in an Organized Health Care Education/Training Program
DX: R07.89 Other chest pain (principal); E86.0 Dehydration; E87.2 Acidosis; R79.1 Abnormal coagulation profile; Z98.84 Bariatric surgery status
CPT/HCPCS: 36415; 36600; 71046; 71275; 74177; 80053; 80320; 80324; 80345; 80346; 80349; 80353; 80358; 80361; 81025; 82436; 82803; 83735; 83992; 84100; 84132; 84300; 84484; 85025; 85378; 93005; 93970; 96361; 96374; 99284; C9113; G0378; J7030; J7042; Q9966; Q9967